=== PATIENT | female | born 1985 | race Caucasian/White ===

== ENCOUNTER 2016-10-24 17:14 | Outpatient (CLI) | payer OTHER ==
[~2016-10-24] VITALS: Ht 172.7 cm; Wt 90.7 kg
[~2016-10-24 17:14] MED LIST: PRENTAB26 PO
[2016-10-24] MEDS ORDERED: LACTATED RINGER'S 1000ML 500 ML IV ONE (18:06)
[2016-10-24] MEDS ORDERED: LACTATED RINGER'S 1000ML 1,000 ML IV SCH (18:06)
[2016-10-24 20:21] VITALS: Ht 172.7 cm; Wt 90.7 kg
[2016-10-24] MEDS ORDERED: SERT1TAB72 PO (20:21)
== END 2016-10-24 20:00 | disposition home or self-care (01) ==
LOC: C.OPB 17:14 → C.LD 17:14 → C.OPB 20:00
PROVIDERS: ATTEND Obstetrics & Gynecology
DX: O62.9 Abnormality of forces of labor, unspecified (principal); Z3A.34 34 weeks gestation of pregnancy

== ENCOUNTER → 2016-11-06 | Outpatient (CLI) | payer OTHER ==
[~2016-11-06] MED LIST changes: +SERT1TAB72 PO; +ZNTT/150 PO
== END | disposition home or self-care (01) ==
LOC: C.LABSPEC 15:09
PROVIDERS: ATTEND Obstetrics & Gynecology
DX: Z34.83 Encounter for supervision of other normal pregnancy, third trimester (principal)

== ENCOUNTER 2016-11-21 19:04 | Outpatient (CLI) | payer OTHER ==
[~2016-11-21] VITALS: Ht 172.7 cm; Wt 93.0 kg
[~2016-11-21 19:04] MED LIST changes: -ZNTT/150 PO
[2016-11-21 19:34] VITALS: Ht 172.7 cm; Wt 93.0 kg
== END 2016-11-21 19:29 | disposition home or self-care (01) ==
LOC: C.OPB 19:04 → C.LD 19:04 → C.OPB 19:29
PROVIDERS: ATTEND Obstetrics & Gynecology
DX: Z34.83 Encounter for supervision of other normal pregnancy, third trimester (principal); Z3A.38 38 weeks gestation of pregnancy

== ENCOUNTER 2016-11-30 20:21 | Outpatient (CLI) | payer OTHER | END 2016-11-30 20:55 | disposition home or self-care (01) | LOC: C.OPB 20:21 → C.LD 20:21 → C.OPB 20:55 | PROVIDERS: ATTEND Obstetrics & Gynecology | DX: O62.9 Abnormality of forces of labor, unspecified (principal); O99.343 Other mental disorders complicating pregnancy, third trimester; F32.9 Major depressive disorder, single episode, unspecified; Z3A.39 39 weeks gestation of pregnancy ==

== ENCOUNTER 2016-12-03 01:23 | Inpatient (IN) | payer OTHER ==
[~2016-12-03] VITALS: Ht 175.3 cm; Wt 94.5 kg
[2016-12-03 01:41] VITALS: Ht 175.3 cm; Wt 94.5 kg
[2016-12-03] MEDS ORDERED: ZNTT/150 PO (01:52)
[2016-12-03] MEDS ORDERED: LACTATED RINGER'S 1000ML 1,000 ML IV PRN (02:04)
[2016-12-03 02:21] LABS: HEMATOCRIT 33.1 % (37-47); MEAN CELL VOLUME 83.8 fL (80-100); MEAN CORPUSCULAR HEMOGLOBIN 27.1 pg (25-34); MEAN CORPUSCULAR HGB CONC 32.3 g/dl (32-36); MEAN PLATELET VOLUME 10.2 fL (7.4-10.4); PLATELET COUNT 241 K/uL (130-400); RED BLOOD COUNT 3.95 M/uL (4.2-5.4); WHITE BLOOD COUNT 15.87 K/uL (4.8-10.8)
[2016-12-03] MEDS ORDERED: BUPIVACAINE 0.25% 30 ML VIAL ONE (05:57)
[2016-12-03] MEDS ORDERED: EpHEDrine SULFATE INJ 50 MG/ML AMP ONE (05:57)
[2016-12-03] MEDS ORDERED: FENTANYL CITRATE INJ 50 MCG/1 ML 2 ML VIAL ONE (05:57)
[2016-12-03] MEDS ORDERED: FENTANYL 2MCG/ML ROPIV 1.25MG/ML 100ML BAG EPI ONE (05:58)
[2016-12-03] MEDS: LACTATED RINGER'S 1000ML 1,000 ML IV SCH ×2 (06:50→11:22)
[2016-12-03] MEDS ORDERED: NALOXONE HCL INJ 1 MG in SODIUM CHLORIDE 0.9% 1000ML 1,000 ML IV PRN (06:57)
[2016-12-03] MEDS ORDERED: LACTATED RINGER'S 1000ML 500 ML IV PRN ×2 (06:57→08:30)
[2016-12-03] MEDS ORDERED: EpHEDrine SULFATE INJ 50 MG/ML AMP IV PRN (07:00)
[2016-12-03] MEDS ORDERED: NALOXONE HCL INJ 0.4 MG/1 ML VIAL/CARP IV PRN (07:00)
[2016-12-03] MEDS ORDERED: ONDANSETRON INJ 2 MG/ML 2 ML VIAL IV PRN (07:00)
[2016-12-03] MEDS ORDERED: NALBUPHINE HCL INJ 10 MG/ML AMP IV PRN (07:00)
[2016-12-03] MEDS ORDERED: DiphenhydrAMINE HCL 50 MG/ML VIAL IV PRN (07:00)
[2016-12-03] MEDS ORDERED: PROMETHAZINE HCL INJ 25 MG in SODIUM CHLORIDE 0.9% 50ML 50 ML IV PRN (07:00)
[2016-12-03] MEDS ORDERED: OXYTOCIN 30 UNITS/500ML NSS IV PRN ×2 (08:30→16:45)
[2016-12-03] MEDS: FENTANYL 2MCG/ML ROPIV 1.25MG/ML 100ML BAG EPI PRN ×2 (15:00→15:32)
[2016-12-03] MEDS ORDERED: DIPHTHERIA/TETANUS/PERTUSSIS 0.5 ML SYR/VIAL IM. ONE (16:45)
[2016-12-03] MEDS ORDERED: HYDROCORTISONE ACETATE 25 MG SUPP PR PRN (16:45)
[2016-12-03] MEDS ORDERED: LANOLIN OINT EXT PRN ×2 (16:45)
[2016-12-03] MEDS ORDERED: BENZOCAINE 20% AER SPR 82.5 GM CAN EXT PRN (16:45)
[2016-12-03] MEDS ORDERED: SUPERCREAM 0.870 % 15GM JAR EXT PRN (16:45)
--- NOTE | 2016-12-03 17:00 | Vaginal Delivery Summary ---
Vaginal Delivery Summary Diagnosis: Spontaneous Vaginal Delivery w/ right labial tear Doctors delivering baby: Dr. Garcia and Dr. Sorenson The patient is a 31-year-old 2, para 1 at 40 weeks and 0 days gestation , who was admitted to labor and delivery on the dining room attendant cafeteria of 12/03/2016 with PROM. She had pitocin IV in order to facilitate regular uterine contractions. She received an epidural for anesthesia. She was found to be completely dilated at 1603 with the urge to push. The patient pushed to delivery. At 1609, she delivered a viable female in the left occiput anterior position. Once the baby was delivered, it was placed on the patient's abdomen. Cord was clamped x2 and cut. Apgars were 7 at 1 minute, 9 at 5 minutes. Weight is pending. Please see nursing notes for further baby assessment. Cord blood was then obtained. Exploration of the perineum revealed a right labial tear which was repaired by Dr. Garcia with 4.0 vicryl. After repair an intact placenta with 3-vessel cord was delivered at 1618. The lower uterine segment and vagina was cleared of any blood clots and debris. Estimated blood loss was 350 mL. All sponge and instrument counts were found to be correct x2. Both patient and baby tolerated the delivery well and were in recovery with stable vital signs.
--- NOTE | 2016-12-03 17:53 | DELIVERY SUMMARY ---
DATE OF OPERATION: 12/03/2016 PREOPERATIVE DIAGNOSES: 1. Intrauterine at 40 and 0/7 weeks. 2. Premature rupture of membranes prior to the onset of labor. POSTOPERATIVE DIAGNOSES: Same. PROCEDURES: 1. Epidural anesthesia. 2. Pitocin augmentation. 3. Normal spontaneous vaginal delivery. 4. Right labial laceration with repair. SURGEON: Zuri Garcia MD. GLUE DRIER OPERATOR: Michael Sorenson, PGY 1. ESTIMATED BLOOD LOSS: 350 mL. ANESTHESIA: Epidural. DESCRIPTION OF PROCEDURE: The patient presented to labor and delivery in the wee hours of December 03. She noted that she had ruptured her bag of water for clear fluid. She progressed slowly with 3-4 cm for many hours. She underwent an epidural anesthetic and then received Pitocin augmentation. Under Pitocin augmentation she progressed to complete/complete and +3 station with an urge to push. She pushed over 1 contraction for approximately 4 pushes to deliver a viable female infant in SAMMI presentation. The nose and mouth were bulb suctioned, there was no nuchal cord. There was noted to be a right arm in compound presentation underneath the baby's neck. The anterior shoulder was easily delivered and then the rest of the body was delivered. The baby was placed on the maternal abdomen for drying and attention. The cord was clamped and cut. Cord blood and segment were obtained. The placenta was delivered spontaneously intact with a 3-vessel cord. Cervix, sulci and rectum as well as the perineum was examined and found to be intact. A right labial laceration was repaired with several interrupted sutures of 4-0 Vicryl. Hemostasis was obtained with dilute Pitocin and fundal massage. Estimated blood loss 350 mL. Apgars were 7 and 9, mother and baby doing well at the end of the delivery. Weight pending. I attest to the content of the Intraoperative Record and any orders documented therein. Any exceptio ns are noted below.
--- NOTE | 2016-12-03 18:30 | Anesthesia Procedure Note ---
Anesthesia Epidural Removal Nt Date & Time Dec 03, 2016 at 18:29 Vital Signs Pain Intensity: 0.0 Notes Mental Status: alert / awake / arousable, participated in evaluation Nausea / Vomiting: adequately controlled Pain: adequately controlled Airway Patency, RR, SpO2: stable & adequate BP & HR: stable & adequate Hydration State: stable & adequate Neuraxial Anesthesia: was administered Anesthetic Complications: no major complications apparent, pt satisfied with anesthetic care Epidural: removed without complications, with tip intact
[2016-12-03] MEDS: IBUPROFEN 600 MG TAB PO PRN ×2 (18:41→22:56)
[2016-12-03 19:25] VITALS: BP 136/86; PULSE 85; TEMP 37.2
[2016-12-03] MEDS: DOCUSATE SODIUM 100 MG CAP PO SCH (20:40)
[2016-12-03] MEDS ORDERED: NURSING VERBAL MED ORDER ONE (21:15)
[2016-12-03 23:00] VITALS: BP 127/79; PULSE 82; TEMP 36.8
[2016-12-04 02:55] VITALS: BP 131/89; PULSE 73; TEMP 36.9
[2016-12-04] MEDS: IBUPROFEN 600 MG TAB PO PRN ×3 (03:03→16:09)
--- NOTE | 2016-12-04 06:58 | Medical Student: [facility] ---
Med Student ASSOCIATE MARKETING MANAGER Progress Nt Date of Service Dec 04, 2016. Subjective conversation w/ patient, physical exam Ambulation: ambulating normally (in room) Voiding: no voiding problems Passing Gas: Yes Diet Tolerance: Regular Diet Lochia: Small Feeding Type: Breast Feeding (without issue) Pain: Some cramping in abdomen, but limited pain in vaginovulvar area. Review of Systems Respiratory: No shortness of breath Cardiac: No chest pain Abdomen: + pain (cramping) denies leg pain/redness, lightheadedness, or dizziness Objective Vital Signs Date Time Temp Pulse Resp B/P Pulse Ox O2 Delivery O2 Flow Rate FiO2 12/04/16 02:55 36.9 73 20 131/89 12/03/16 23:00 36.8 82 18 127/79 12/03/16 23:00 Room Air 12/03/16 20:10 Room Air 12/03/16 19:25 37.2 85 18 136/86 Physical Exam General Appearance: WELL-APPEARING, NO APPARENT DISTRESS Respiratory/Chest: lungs clear, normal breath sounds Cardiovascular: regular rate, rhythm, no gallop, no murmur Abdomen: normal bowel sounds, soft, + tenderness (mild to palpation in lower abdomen) Fundus: Firm, Tender, Relation to Umbilicus (at the level of the umbilicus) Extremities: non-tender, no pedal edema, no calf tenderness Laboratory Results Last 24 Hours Test 12/04/16 04:44 Medications Current Inpatient Medications Medications (Trade) Dose Ordered Sig/Lizandro Route Start Time Stop Time Status Last Admin Dose Admin Lactated Ringer's (Lr 1000ml) 1,000 ml @ 125 mls/hr Q8H IV 12/03/16 02:04 12/05/16 02:03 12/03/16 11:22 125 MLS/HR Oxytocin (Pitocin IV) 30 units UD PRN IV 12/03/16 16:45 01/02/17 16:44 Benzocaine (Dermoplast Aero Spr) 1 appln PRN PRN EXT 12/03/16 16:45 01/02/17 16:44 Cocaine HCl (Supercream 0.870% Cr) BID PRN EXT 12/03/16 16:45 12/17/16 16:44 Hydrocortisone Acetate (Anusol Hc Supp) 25 mg BID PRN MT 12/03/16 16:45 01/02/17 16:44 Lanolin (Lanolin Oint) PRN PRN EXT 12/03/16 16:45 01/02/17 16:44 Prenat Multivit/ Quail Farmer/Iron/Folic Ac ( Vitamin Tab) 1 tab DAILY PO 12/04/16 08:00 01/03/17 07:59 Ibuprofen (Motrin Tab) 600 mg Q4H PRN PO 12/03/16 16:45 01/02/17 16:44 12/04/16 03:03 600 MG Acetaminophen (Tylenol Tab) 650 mg Q6H PRN PO 12/03/16 16:45 01/02/17 16:44 Docusate Sodium (coLACE CAP) 100 mg BID PO 12/03/16 20:00 01/02/17 19:59 12/03/16 20:40 100 MG Sertraline HCl (Zoloft Tab) 25 mg DAILY PO 12/04/16 08:00 01/03/17 07:59 Assessment and Plan Post- Day Number: 1 Continue Routine Care: This is a 31 yo who delivered at term via at 16:09 on 12/03/16. Today she is doing well. Vitals are stable and wnl. She is tolerating ambulation and diet. Continue routine care.
[2016-12-04 07:03] LABS: HEMATOCRIT 31.8 % (37-47)
--- NOTE | 2016-12-04 07:12 | Progress Note ---
Subjective Dec 04, 2016. Subjective conversation w/ patient, physical exam, lab review Ambulation: ambulating normally Voiding: no voiding problems Passing Gas: Yes Diet Tolerance: Regular Diet Lochia: Small Feeding Type: Breast Feeding Pain: controlled with oral pain, cramping Objective Vital Signs Date Time Temp Pulse Resp B/P Pulse Ox O2 Delivery O2 Flow Rate FiO2 12/04/16 02:55 36.9 73 20 131/89 12/03/16 23:00 36.8 82 18 127/79 12/03/16 23:00 Room Air 12/03/16 20:10 Room Air 12/03/16 19:25 37.2 85 18 136/86 Physical Exam General Appearance: WELL-APPEARING, WD/WN, NO APPARENT DISTRESS Respiratory/Chest: lungs clear, normal breath sounds Cardiovascular: regular rate, rhythm Abdomen: normal bowel sounds, non tender, soft Fundus: Firm, Non-Tender, Relation to Umbilicus (2 below u and deep) Extremities: non-tender, normal inspection Laboratory Results Last 24 Hours Test 12/04/16 06:10 Hemoglobin 10.2 g/dL Hematocrit 31.8 % Assessment and Plan Problem List Medical Problems: (1) Laceration Status: Acute Post- Day#: 1 Continue Routine Care: Doing well. Routine care.
[2016-12-04] MEDS: DOCUSATE SODIUM 100 MG CAP PO SCH ×2 (07:52→19:29)
[2016-12-04] MEDS: PRENATAL VITAMIN TAB PO SCH (07:52)
[2016-12-04] MEDS: SERTRALINE HCL 50 MG TAB PO SCH (07:53)
[2016-12-04 08:45] VITALS: BP 116/79; PULSE 76; TEMP 36.7
[2016-12-04] MEDS: ACETAMINOPHEN 325 MG TAB PO PRN ×2 (10:34→19:30)
[2016-12-04 12:00] VITALS: BP 143/84; PULSE 82; TEMP 36.8
[2016-12-04 12:05] VITALS: BP 143/84; PULSE 82; TEMP 36.8
[2016-12-04 15:40] VITALS: BP 121/80; PULSE 77; TEMP 36.9
[2016-12-04 23:30] VITALS: BP 138/92; PULSE 70; TEMP 36.4; O2SAT 99
[2016-12-05] MEDS: IBUPROFEN 600 MG TAB PO PRN ×3 (00:28→15:42)
--- NOTE | 2016-12-05 06:57 | Medical Student: [facility] ---
Med Student TRANSACTION PROCESSOR Progress Nt Date of Service Dec 05, 2016. Subjective conversation w/ patient, physical exam, chart review, lab review Ambulation: ambulating normally Voiding: no voiding problems Passing Gas: Yes Diet Tolerance: Regular Diet Lochia: Small Feeding Type: Bottle Feeding (had diffficulty with , switched yesterday) Pain: mild cramping Notes: no bowel movement yet Review of Systems Respiratory: No shortness of breath Cardiac: No chest pain Objective Vital Signs Date Time Temp Pulse Resp B/P Pulse Ox O2 Delivery O2 Flow Rate FiO2 12/04/16 23:30 36.4 70 18 138/92 12/04/16 23:30 99 Room Air 12/04/16 15:40 36.9 77 18 121/80 12/04/16 15:40 Room Air 12/04/16 12:05 36.8 82 20 143/84 12/04/16 12:00 36.8 82 20 143/84 12/04/16 08:45 36.7 76 20 116/79 Physical Exam General Appearance: WELL-APPEARING, NO APPARENT DISTRESS Respiratory/Chest: lungs clear, normal breath sounds Cardiovascular: regular rate, rhythm, no murmur Abdomen: normal bowel sounds, soft Fundus: Firm, Tender (mildly), Relation to Umbilicus (midway between umbilicus and pubic symphysis) Extremities: + pedal edema (trace) Laboratory Results Test 12/03/16 01:52 12/03/16 02:14 12/04/16 06:10 Amniotic Fluid Protein POS White Blood Count 15.87 Red Blood Count 3.95 Hemoglobin 10.7 10.2 Hematocrit 33.1 31.8 Mean Corpuscular Volume 83.8 Mean Corpuscular Hemoglobin 27.1 Mean Corpuscular Hemoglobin Concent 32.3 RDW Standard Deviation 43.5 RDW Coefficient of Variation 14.2 Platelet Count 241 Mean Platelet Volume 10.2 Assessment and Plan Post- Day Number: 2 Continue Routine Care: Vitals stable/wnl. doing well clinically. Discharge to home today.
[2016-12-05 07:00] VITALS: BP 124/77; PULSE 67; TEMP 36.8
--- NOTE | 2016-12-05 07:17 | Progress Note ---
Subjective Dec 05, 2016. Subjective conversation w/ patient, physical exam Ambulation: ambulating normally Voiding: no voiding problems Passing Gas: Yes Diet Tolerance: Regular Diet Lochia: Small Feeding Type: Breast Feeding Review of Systems Constitutional: No chills, No fever, No sweats Respiratory: No cough, No shortness of breath Cardiac: No chest pain, No claudication Objective Vital Signs Date Time Temp Pulse Resp B/P Pulse Ox O2 Delivery O2 Flow Rate FiO2 12/04/16 23:30 36.4 70 18 138/92 12/04/16 23:30 99 Room Air 12/04/16 15:40 36.9 77 18 121/80 12/04/16 15:40 Room Air 12/04/16 12:05 36.8 82 20 143/84 12/04/16 12:00 36.8 82 20 143/84 12/04/16 08:45 36.7 76 20 116/79 Physical Exam General Appearance: WELL-APPEARING, NO APPARENT DISTRESS Respiratory/Chest: lungs clear, no respiratory distress Cardiovascular: regular rate, rhythm, no murmur Fundus: Firm, Non-Tender, Relation to Umbilicus (2 cm below) Extremities: non-tender, no calf tenderness Assessment and Plan Problem List Medical Problems: (1) Laceration Status: Acute Post- Day#: 2 Continue Routine Care: s/p Day 2 vitals reviewed and wnl hgb 10.2 yesterday blood: A+, GBS-, Rubella immune patient doing well clinically encourage ambulation, and monitor lochia Patient counselled on discharge instructions PATIENT TO BE DISCHARGED TODAY Resident Physician Supervision Note: I interviewed and examined the patient. Discussed with Dr. Sorenson and agree with findings and plan as documented in the note. Any exceptions or clarifications are listed here: [None] Documented By: Collins Bethea
--- NOTE | 2016-12-05 07:18 | Discharge Instructions ---
Discharge Instructions Date of Service Dec 05, 2016. Admission Reason for Admission: Labor Check Discharge Discharge Diagnosis / Problem: Spontaneous Vaginal Delivery Discharge Goals Goal(s): Routine recovery after delivery Medications Continue Dispensed Medications: supercream, dermaplast, tucks, lansinoh Activity Recommendations Activity Limitations: per Instructions/Follow-up section . Instructions / Follow-Up Instructions / Follow-Up ACTIVITY RECOMMENDATIONS: * Gradual return to full activity over the next 2-3 weeks. * No lifting - nothing heavier than baby over the next 2-3 weeks. * Do not engage in vigorous exercise, sexual activity or sports until cleared by your physician. * Do not drive or operate any motorized equipment until cleared by your physician. * You may shower/bathe daily. MEDICATIONS: For discomfort or pain, you may use Acetaminophen (Tylenol), Ibuprofen (Advil), or Naproxen (Aleve) following the package directions. For constipation you may use Colace following the package directions. BREAST CARE: If you are not breast feeding: * Wear a supportive bra 24 hours a day for one to two weeks. * Avoid stimulating your breasts and nipples as much as possible during the first few weeks after delivery. * When taking a shower, have the warm water hit your back, not breasts. * When your breasts feel full, apply ice packs. Usually three to four times a day helps ease the discomfort. * Take a mild pain medication (Tylenol / Motrin) when you are uncomfortable. If breast feeding: * Use breast milk to lubricate nipples. Lansinoh cream may be used for sore nipples. You do not need to remove cream prior to breast feeding. If using a different brand of cream, check the label for directions regarding removal of cream prior to nursing. * Wear a supportive bra. * If having problems with breasts or breast feeding, call a surgery consultant or your health care provider. EPISIOTOMY CARE: After delivery, if you have an episiotomy (stitches), the following steps will ease discomfort and aid healing. * For the first 24 hours after delivery, place ice packs next to your episiotomy to help reduce swelling. * After the first 24 hour-period, sitz baths, either portable or in the tub, are suggested. A shower with a shower arm sprayed over the episiotomy may be comforting. * Roxie care should be done after each voiding and bowel movement. Squirt warm water from a plastic bottle over the perineum (region of the body between the anus and urinary opening) and pat dry. * Use Dermoplast to ease discomfort. Shake container. [place] directly over the episiotomy. Place a Tucks on a clean sanitary pad next to your episiotomy. SPECIAL CARE INSTRUCTIONS: When you are discharged from the hospital, it is important for you to follow the instructions listed below: * During the first week at home, you should be able to care for yourself and your baby. In addition, the usual light household activities are encouraged. * Limit your activities to the way you feel. Do not try to clean the house or move furniture. Be sensible. * If you actively engage in sports and have done so up until the time of your delivery, you may resume these activities as soon as you feel able. This may take up to one month or even longer. Use good judgment. * Continue to take your vitamins for at least six weeks after the of your baby. * Your diet need not be limited unless you were on a special diet before your delivery. Breast-feeding mothers need around 2500 calories per day and at least 64-80 ounces of fluid per day (8 to 10 glasses). * You should eat foods from the four major food groups. Crash diets or fad diets are to be avoided. Eating lean meats, fresh fruits and vegetables, low-fat dairy products, high fiber foods and a regular exercise program, will help you get back to your pre- weight without putting your health at risk. * Constipation is sometimes a problem after delivery. Take a mild laxative as needed. If breast feeding, Milk of Magnesia is acceptable to use. You may use a suppository or Fleets enema if no episiotomy. * A daily shower or tub bath is suggested. Be sure to thoroughly and gently dry the perineum. * A bloody vaginal discharge will usually continue until around four weeks post . A small amount of bleeding may continue for as long as six weeks. Vaginal discharge changes from the bright red bleeding after delivery to pink then brownish and finally yellowish-pink before becoming white and disappearing. * Bleeding may increase with activity. Your first period may come in 4-8 weeks. If you are breast feeding, your period may be delayed even longer. * [place] (sex) can begin whenever both you and your partner feel comfortable and do not have any form of genital infection. It is recommended that you wait at least six weeks for internal and external healing to occur. If you have questions, please talk to your health care practitioner. A condom should be used to prevent infection and . * Foreplay, gentle intercourse and lubrication is very important the first several times to prevent pain. A water-based lubricant such as K-Y jelly or Astroglide may be used. * If you have RH negative blood and your baby is RH positive, you will receive RHOGAM by injection prior to discharge. The nurse will give you a card to keep with you that has the date and place that you received RHOGAM after delivery. * During your care, you had a Rubella screen done to check for the presence of rubella antibodies in your blood. If your test was negative, you will receive a Rubella vaccine prior to discharge. This vaccine may cause a fever, soreness at the injection site and flu-like symptoms. If these symptoms persist, notify your health care practitioner. is not advised for one month after a Rubella vaccine. * Verbalizes understanding of car seat law as reviewed with patient nursing. * Car Seat hand-out given and reviewed with patient by nursing. * Shaken baby information reviewed with patient by nursing. Call you doctor if: * Heavy bleeding (saturating several pads an hour) or passing clots the size of your fist. * A fever >101 degrees F (38.3 degrees C) on two occasions four hours apart and /or chills. * Unusual pain in the pelvic or vaginal areas. * "Baby Blues" lasting longer than two weeks. If you have any questions or concerns, call your health care practitioner at . FOLLOW UP VISIT: * Please call the office at to schedule a 6 week examination. It is important you keep this appointment. It is important for you to make arrangements for either yearly or twice yearly check-ups thereafter. Current Hospital Diet Patient's current hospital diet: Regular OB Diet Discharge Diet Recommended Diet: Regular Diet Pending Studies Studies pending at discharge: no Medical Emergencies . Who to Call and When: Medical Emergencies: If at any time you feel your situation is an emergency, please call 911 immediately. . Non-Emergent Contact Non-Emergency issues call your: Primary Care Provider, Battery Vent Plug Inserter . . "Provider Documentation" section prepared by Michael Sorenson. VTE Core Measure Inpt VTE Proph given/why not?: Treatment not indicated
[2016-12-05] MEDS: PRENATAL VITAMIN TAB PO SCH (07:57)
[2016-12-05] MEDS: SERTRALINE HCL 50 MG TAB PO SCH (07:57)
[2016-12-05] MEDS: DOCUSATE SODIUM 100 MG CAP PO SCH (07:57)
[2016-12-05] MEDS: ACETAMINOPHEN 325 MG TAB PO PRN (10:07)
[2016-12-05 15:50] VITALS: BP 124/85; PULSE 77; TEMP 36.7; O2SAT 98
[2016-12-05 17:30] VITALS: BP_DIAS 77; PULSE 67; TEMP 36.8
== END 2016-12-05 17:30 | disposition home or self-care (01) | DRG 775 ==
LOC: C.OPB 01:23 → C.LD 01:23 → C.OPB 02:05 → C.OBG 18:47
PROVIDERS: ADMIT Obstetrics & Gynecology; ATTEND Obstetrics & Gynecology
PROC: 10E0XZZ Delivery of Products of Conception, External Approach (ICD-10-PCS; principal; 2016-12-03)
PROC: 0UQMXZZ Repair Vulva, External Approach (ICD-10-PCS; principal; 2016-12-03)
DX: O42.92 Full-term premature rupture of membranes, unspecified as to length of time between rupture and onset of labor (principal); O70.0 First degree perineal laceration during delivery; O32.6XX0 Maternal care for compound presentation, not applicable or unspecified; O76 Abnormality in fetal heart rate and rhythm complicating labor and delivery; O99.02 Anemia complicating childbirth; D64.9 Anemia, unspecified; O99.62 Diseases of the digestive system complicating childbirth; K21.9 Gastro-esophageal reflux disease without esophagitis; O99.344 Other mental disorders complicating childbirth; F32.9 Major depressive disorder, single episode, unspecified; Z37.0 Single live birth; Z3A.40 40 weeks gestation of pregnancy; Z79.899 Other long term (current) drug therapy

== ENCOUNTER → 2017-01-18 | Outpatient (CLI) | payer OTHER ==
[~2017-01-18] MED LIST changes: +ZNTT/150 PO
== END | disposition home or self-care (01) ==
LOC: C.PAPS 08:43
PROVIDERS: ATTEND Obstetrics & Gynecology
DX: R87.610 Atypical squamous cells of undetermined significance on cytologic smear of cervix (ASC-US) (principal)

== ENCOUNTER → 2017-03-29 | Outpatient (CLI) | payer OTHER | END | disposition home or self-care (01) | LOC: C.PATHSPEC 15:38 | PROVIDERS: ATTEND Obstetrics & Gynecology | DX: R87.610 Atypical squamous cells of undetermined significance on cytologic smear of cervix (ASC-US) (principal) ==

== ENCOUNTER → 2017-10-31 | Outpatient (CLI) | payer OTHER ==
[~2017-10-31] MED LIST changes: +RANI150T85 PO; -ZNTT/150 PO
== END | disposition home or self-care (01) ==
LOC: C.PAPS 09:11
PROVIDERS: ATTEND Obstetrics & Gynecology
DX: N87.1 Moderate cervical dysplasia (principal)